=== PATIENT | male | born 1960 | race Caucasian/White ===

== ENCOUNTER 2020-01-07 14:52 | Emergency (ER) | payer BC, OTHER ==
[2020-01-07] MEDS ORDERED: Boostrix 0.5 ML VIAL ONE (15:15)
[2020-01-07] MEDS ORDERED: AMOXicillin 250 MG CAP ONE (15:15)
[2020-01-07] MEDS ORDERED: Lidocaine 1% w/Epinephrine 1:100K 20 ML VIAL ONE (15:34)
[2020-01-07] MEDS ORDERED: Bacitracin 1 PK ONE (16:18)
== END 2020-01-07 16:32 | disposition home or self-care (01) ==
LOC: BURERS 14:52
DX: S81.852A Open bite, left lower leg, initial encounter (principal); I10 Essential (primary) hypertension; E78.00 Pure hypercholesterolemia, unspecified; F17.220 Nicotine dependence, chewing tobacco, uncomplicated; W54.0XXA Bitten by dog, initial encounter; Z79.899 Other long term (current) drug therapy
CPT/HCPCS: 12002; 90471; 90715

== ENCOUNTER 2020-01-18 14:13 | Emergency (ER) | payer BC, OTHER | END 2020-01-18 15:25 | disposition home or self-care (01) | LOC: BURERS 14:13 | DX: S81.852D Open bite, left lower leg, subsequent encounter (principal); I10 Essential (primary) hypertension; E78.00 Pure hypercholesterolemia, unspecified; F17.220 Nicotine dependence, chewing tobacco, uncomplicated ==

== ENCOUNTER 2020-04-15 07:16 | Emergency (ER) | payer BC | END 2020-04-15 08:20 | disposition home or self-care (01) | LOC: BURERS 07:16 | DX: B02.9 Zoster without complications (principal); I10 Essential (primary) hypertension; E78.00 Pure hypercholesterolemia, unspecified; F17.220 Nicotine dependence, chewing tobacco, uncomplicated; Z79.899 Other long term (current) drug therapy | CPT/HCPCS: 99282 ==

== ENCOUNTER 2023-03-18 11:24 | Emergency (ER) | payer BC, OTHER ==
[2023-03-18] MEDS ORDERED: predniSONE 20 MG TAB ONE (12:31)
[2023-03-18] MEDS ORDERED: Amoxicillin/Potassium Clav 875 MG TAB ONE (12:31)
== END 2023-03-18 12:33 | disposition home or self-care (01) ==
LOC: BURERS 11:24
DX: J01.90 Acute sinusitis, unspecified (principal); I10 Essential (primary) hypertension; F17.210 Nicotine dependence, cigarettes, uncomplicated; Z79.899 Other long term (current) drug therapy
CPT/HCPCS: 99283; J7512